=== PATIENT | female | born 2000 | race Caucasian/White ===

== ENCOUNTER 2022-03-07 07:11 | Emergency (ER) | payer MEDICAID ==
[~2022-03-07] VITALS: Ht 165 cm; Wt 133.0 kg
[2022-03-07 07:19] VITALS: BP 129/79
--- NOTE | 2022-03-07 07:42 | ED GU-Female ---
General Stated Complaint: CHILLS,HURTS TO URINATE, BACK PAIN Source: patient Exam Limitations: no limitations History of Present Illness Date Seen by Provider: March 07, 2022 Time Seen by Provider: 07:20 Initial Comments Patient to the ER by private conveyance from home with chief complaint she is having some dysuria for the past couple weeks, frequency of urine and pain radiating to her right flank. She is been using Pyridium and drinking extra fluids. She has not seen anybody for this. She thinks he had a UTI. She does not have a history of frequent UTIs. has not been tested for STDs. She is okay with being tested today. Her discharge is no different than normal. She is on control pills. She has an appointment next month with her primary care provider for Pap smear. No other significant medical history. Allergies and Home Medications Allergies Coded Allergies: No Known Drug Allergies (Unverified , 03/07/22) Patient Home Medication List Home Medication List Reviewed: Yes Cefdinir (Cefdinir) 300 Mg Capsule, 300 MG PO BID Prescribed by: ARABELLA FARNSWORTH on 03/07/22 2789 Review of Systems Review of Systems Constitutional: No chills, No diaphoresis EENTM: No ear discharge, No ear pain Respiratory: No cough, No short of breath Cardiovascular: No chest pain, No edema Gastrointestinal: No abdominal pain, No constipation, No diarrhea Genitourinary: see HPI, burning; denies discharge; dysuria, flank pain Musculoskeletal: No back pain, No joint pain All Other Systemes Reviewed Negative Unless Noted: Yes Past [id number] Hx Patient Social History Tobacco Use?: No Use of E-Cig and/or Vaping dev: No Substance use?: No Physical Exam Vital Signs Vital Signs - First Documented 03/07/22 07:19 Temp 36.9 Pulse 78 Resp 16 B/P (MAP) 129/79 (96) Pulse Ox 99 O2 Delivery Room Air Capillary Refill : Height, Weight, BMI Height: '" Weight: lbs. oz. kg; BMI Method: General Appearance: WD/WN, no apparent distress HEENT: PERRL/EOMI, pharynx normal Neck: full range of motion, normal inspection Cardiovascular: normal peripheral pulses, regular rate, rhythm Respiratory: no respiratory distress, no accessory muscle use Gastrointestinal: non tender, soft Back: normal inspection, no CVA tenderness Neurologic/Psychiatric: alert, normal mood/affect, oriented x 3 Skin: normal color, warm/dry Progress/Results/Core Measures Suspected Sepsis SIRS Temperature: Pulse: Respiratory Rate: Blood Pressure / Mean: Results/Orders Lab Results Laboratory Tests Test 03/07/22 07:25 Range/Units Urine Color YELLOW Urine Clarity SL CLOUDY Urine pH 5.5 5-9 Urine Specific [place] 1.025 H 1.016-1.022 Urine Protein TRACE H NEGATIVE Urine Glucose (UA) NEGATIVE NEGATIVE Urine Ketones NEGATIVE NEGATIVE Urine Nitrite NEGATIVE NEGATIVE Urine Bilirubin NEGATIVE NEGATIVE Urine Urobilinogen 0.2 < = 1.0 MG/DL Urine Leukocyte Esterase 1+ H NEGATIVE Urine RBC (Auto) 2+ H NEGATIVE Urine RBC 5-10 H /HPF Urine WBC 10-25 H /HPF Urine Squamous Epithelial Cells RARE /HPF Urine Crystals NONE /LPF Urine Bacteria NEGATIVE /HPF Urine Casts NONE /LPF Urine Mucus SMALL H /LPF Urine Culture Indicated YES My Orders Orders - ARABELLA FARNSWORTH Ua Culture If Indicated (03/07/22 07:15) Urine Bedside (03/07/22 07:15) Ceftriaxone (Rocephin) (03/07/22 07:45) Azithromycin Tablet (Zithromax Tablet) (03/07/22 07:45) Lidocaine 1% Inj 20 Ml (Xylocaine 1% Inj (03/07/22 07:45) Neis Jamir Dna Urine Test (03/07/22 07:35) Chlamydia Trachomatis Urine (03/07/22 07:35) Urine Culture (03/07/22 07:25) Medications Given in ED Current Medications Medications Dose Ordered Sig/Matty Route Start Time Stop Time Status Last Admin Dose Admin Azithromycin 1,000 mg ONCE ONCE PO 03/07/22 07:45 03/07/22 07:46 DC 03/07/22 07:53 1,000 MG Ceftriaxone Sodium 1,000 mg ONCE ONCE IM 03/07/22 07:45 03/07/22 07:46 DC 03/07/22 07:52 1,000 MG Lidocaine HCl 2.1 ml ONCE ONCE INJ 03/07/22 07:45 03/07/22 07:46 DC 03/07/22 07:52 2.1 ML Vital Signs/I&O 03/07/22 07:19 Temp 36.9 Pulse 78 Resp 16 B/P (MAP) 129/79 (96) Pulse Ox 99 O2 Delivery Room Air Capillary Refill : Progress Note : Time: 07:42 Progress Note We did offer labs and wet prep but the patient states she would prefer not to. She does not have septic vital signs. She does not appear particularly uncomfor table. We have just offered to do some antibiotics. We talked about STI testing and she says she would like to be tested today but declined a wet prep. A gram of Rocephin, a gram of azithromycin and will put her out on cefdinir for 10 days with return precautions. Departure Impression Primary Impression: UTI (urinary tract infection) Qualified Codes: N10 - Acute pyelonephritis Disposition: HOME, SELF-CARE Condition: Stable Departure-Patient Inst. Decision time for Depature: 08:14 Referrals: JEREMY COLLIER MD (PCP/Family) Primary Care Physician Patient Instructions: Urinary Tract Infection, Adult (DC) Add. Discharge Instructions: Drink lots of fluids. Pyridium 100 to 200 mg twice a day as needed for 4 to 5 days to treat burning urination. Cefdinir 1 capsule twice a day for 10 days to treat your urinary tract infection. Probiotics 1 capsule twice a day for 10 days to prevent antibiotic related side effects. Promptly return to the ER if you are developing high fevers, vomiting, intractable pain or other worrisome symptoms. Tylenol 1000 mg every 8 hours as needed for discomfort. Ibuprofen 800 mg every 8 hours as needed for discomfort. We sent tests out today that will not be available for a few days. If they are positive we will call you. Scripts Cefdinir (Cefdinir) 300 Mg Capsule 300 MG PO BID for 10 Days, #20 CAP 0 Refills Prov: ARABELLA FARNSWORTH 03/07/22 Work/School Note: Work Release Form Date Seen in the Emergency Department: March 07, 2022 Return to Work: March 09, 2022 Restrictions: No Restrictions ARABELLA FARNSWORTH March 07, 2022 07:42
[2022-03-07 07:44] LABS: BILIRUBIN,URINE NEGATIVE (NEGATIVE); CLARITY,URINE SL CLOUDY; COLOR,URINE YELLOW; GLUCOSE, URINE (UA) NEGATIVE (NEGATIVE); KETONES,URINE NEGATIVE (NEGATIVE); LEUKOCYTE ESTERASE ,URINE 1+ (NEGATIVE); NITRITE,URINE NEGATIVE (NEGATIVE); PH,URINE 5.5 (5-9); PROTEIN,URINE TRACE (NEGATIVE)
[2022-03-07] MEDS ORDERED: AZITHROMYCIN 250 MG TAB (ZITHROMAX) PO ONE (07:45)
[2022-03-07] MEDS ORDERED: LIDOCAINE 1% INJ 20 ML VIAL INJ ONE (07:45)
[2022-03-07] MEDS ORDERED: cefTRIAXone 1,000 MG VIAL IM ONE (07:45)
[2022-03-07] MEDS ORDERED: CEFD300C3 PO (07:47)
[2022-03-07 07:55] LABS: BACTERIA,URINE NEGATIVE /HPF; SQUAMOUS EPITHELIAL CELL,UR RARE /HPF
== END 2022-03-07 08:24 | disposition home or self-care (01) ==
LOC: ER 07:14
DX: N10 Acute pyelonephritis (principal); Z79.3 Long term (current) use of hormonal contraceptives
CPT/HCPCS: 36415; 81000; 84703; 87077; 87088; 87491; 87591; 99285

== ENCOUNTER 2022-09-25 01:33 | Emergency (ER) | payer MEDICAID ==
[~2022-09-25 01:33] MED LIST: CEFD300C3 PO
--- NOTE | 2022-09-25 01:40 | ED Cough/URI ---
General Chief Complaint: Cough/Cold/Flu Symptoms Stated Complaint: CONGESTION - COUGH - CHEST TIGHTNESS - SOA History of Present Illness Date Seen by Provider: Sep 25, 2022 Time Seen by Provider: 01:37 Initial Comments 22-year-old female with PMH of asthma, is here with complaints of cough, intermittent shortness of breath, chest tightness for the past 2 to 3 days. No known sick contacts. Denies fever, diarrhea, abdominal pain, sore throat. Allergies and Home Medications Allergies Coded Allergies: No Known Drug Allergies (Unverified , 03/07/22) Patient Home Medication List Home Medication List Reviewed: Yes Cefdinir (Cefdinir) 300 Mg Capsule, 300 MG PO BID Prescribed by: ARABELLA FARNSWORTH on 03/07/22 0747 Review of Systems Review of Systems Constitutional: no symptoms reported EENTM: no symptoms reported Respiratory: cough, short of breath, wheezing Cardiovascular: no symptoms reported Gastrointestinal: no symptoms reported Genitourinary: no symptoms reported Musculoskeletal: no symptoms reported Skin: no symptoms reported Psychiatric/Neurological: No Symptoms Reported Hematologic/Lymphatic: No Symptoms Reported Immunological/Allergic: no symptoms reported Physical Exam Vital Signs - First Documented 09/25/22 01:36 Temp 36.0 Pulse 84 Resp 16 B/P (MAP) 136/89 (105) Pulse Ox 99 O2 Delivery Room Air Capillary Refill : Height: '" Weight: lbs. oz. kg; 48.00 BMI Method: General Appearance: WD/WN, no apparent distress HEENT: PERRL/EOMI, normal ENT inspection, TMs normal, pharynx normal Neck: non-tender, full range of motion, supple Respiratory: chest non-tender, lungs clear, normal breath sounds, no respiratory distress, no accessory muscle use, wheezing (Expiratory) Cardiovascular: regular rate, rhythm Gastrointestinal: non tender, soft Neurologic/Psychiatric: alert, oriented x 3 Skin: normal color Progress/Results/Core Measures Suspected Sepsis SIRS Temperature: Pulse: Respiratory Rate: Blood Pressure / Mean: Results/Orders Lab Results Laboratory Tests Test 09/25/22 01:46 Range/Units Influenza Type A (RT-PCR) Not Detected Not Detecte Influenza Type B (RT-PCR) Not Detected Not Detecte SARS-CoV-2 RNA (RT-PCR) Not Detected Not Detecte Group A Streptococcus Screen NEGATIVE NEGATIVE My Orders Orders - LEÓN PANDEY MD Covid 19 Inhouse Test (09/25/22 01:37) Influenza A And B By Pcr (09/25/22 01:37) Rapid Strep A Screen (09/25/22 01:37) Albuterol/Ipra Inhalation Soln (Duoneb I (09/25/22 02:00) Svn Small Volume Nebulizer (09/25/22 01:48) Prednisone Tablet (Deltasone Tablet) (09/25/22 01:48) Prednisone Tablet (Deltasone Tablet) (09/25/22 02:00) Medications Given in ED Current Medications Medications Dose Ordered Sig/Matty Route Start Time Stop Time Status Last Admin Dose Admin Albuterol/ Ipratropium 3 ml ONCE ONCE INH 09/25/22 02:00 09/25/22 02:01 DC 09/25/22 01:56 3 ML Vital Signs/I&O 09/25/22 09/25/22 09/25/22 01:36 01:36 03:18 Temp 36.0 Pulse 84 83 Resp 16 16 B/P (MAP) 136/89 (105) 119/83 Pulse Ox 99 100 O2 Delivery Room Air Room Air Room Air Capillary Refill : Progress Note : Progress Note 1. ACUTE ASTHMA EXACERBATION: - COVID TEST/ Rapid Flu Test/ Rapid Strep Test: negative - Duo neb in ER, pt felt much better after this - Prednisone 60mg STAT in ER - Prescription for Albuterol inhaler since the one pt has at home is . Prescription for 3 days Prednisone - Follow up with PCP in the next 3 to 7 days -The patient was seen in the ED, and treated appropriately to presentation at a specific point in time. Patient is informed that there is a possibility that di sease and illness can evolve and change in acuity rapidly or slowly after patient is discharged from the ER. Precautionary advice given to the patient for immediate return to ER if symptoms worsen or do not resolve, and to seek emergency care sooner rather than later. Pt also advised on the importance of PCP follow up and compliance with management and follow up plan with PCP and/or specialist, as this is part of the management plan. Pt verbally expressed understanding. Departure Impression Primary Impression: Asthma exacerbation Disposition: 01 HOME, SELF-CARE Condition: Improved Departure-Patient Inst. Referrals: JEREMY COLLIER MD (PCP/Family) Primary Care Physician Patient Instructions: Asthma, Adult (DC), Avoiding Asthma Triggers, Asthma Action Plan, Controlling Dust and Allergens in Your Home, How to Use a Metered Dose Inhaler ED, Cough, Runny Nose, and the Common Cold (DC) Add. Discharge Instructions: - Prednisone 60mg STAT in ER - Prescription for Albuterol inhaler - Prednisone prescription 50 mg daily for 3 days - Follow up with PCP in the next 3 to 7 days All discharge instructions reviewed with patient and/or family. Voiced understanding. Work/School Note: Work Release Form Date Seen in the Emergency Department: Sep 25, 2022 Return to Work: Sep 27, 2022 Restrictions: No Restrictions LEÓN PANDEY MD Sep 25, 2022 01:39
[2022-09-25] MEDS ORDERED: predniSONE 20 MG TAB PO STA (01:48)
[2022-09-25] MEDS ORDERED: predniSONE 10 MG TAB PO ONE (02:00)
[2022-09-25] MEDS ORDERED: RT-ALBUTEROL/IPRATROPIUM 3 ML (DUONEB) VIAL INH ONE (02:00)
[2022-09-25 03:18] VITALS: BP 119/83
[2022-09-25] MEDS ORDERED: RT-ALBUINH INH (03:33)
[2022-09-25] MEDS ORDERED: PRD50T PO (03:34)
== END 2022-09-25 03:56 | disposition home or self-care (01) ==
LOC: EDUNIT# 01:33 → ER 01:34
DX: J45.901 Unspecified asthma with (acute) exacerbation (principal); Z20.822 Contact with and (suspected) exposure to COVID-19; Z28.310 Unvaccinated for COVID-19
CPT/HCPCS: 87430; 87636; 99283